=== PATIENT | female | born 1955 | race Caucasian/White ===

== ENCOUNTER 2024-03-13 20:59 | Emergency (ER) | payer MEDICARE ==
[~2024-03-13] VITALS: Ht 172.7 cm; Wt 75.4 kg
[2024-03-13 21:48] LABS: BASOPHILS # (AUTO) 0.1 X10'3 (0-0.2); HEMOGLOBIN 13.8 g/dl (12.0-16.0); LYMPHOCYTES % (AUTO) 36.7 % (21-51); MONOCYTES # (AUTO) 0.7 X10'3 (0-0.9)
[2024-03-13 21:50] LABS: BASOPHILS % (AUTO) 0.8 % (0-1); EOSINOPHILS # (AUTO) 0.1 X10'3 (0-0.9); EOSINOPHILS % (AUTO) 1.5 % (0-6); HEMATOCRIT 41.3 % (35.0-45.0); LYMPHOCYTES # (AUTO) 3.4 X10'3 (1.1-4.8); MEAN CORPUSCULAR HEMOGLOBIN 31.6 PG (27.0-31.0); MEAN CORPUSCULAR HGB CONC 33.5 g/dL (33.0-36.5); MEAN CORPUSCULAR VOLUME 94.3 FL (78-98); MEAN PLATELET VOLUME 10.3 FL (7.4-10.4); MONOCYTES % (AUTO) 7.2 % (2-12); NEUTROPHILS % (AUTO) 53.8 % (42-75); PLATELET COUNT 282 X10'3 (140-440); RED BLOOD COUNT 4.38 X10'6 (4.20-5.60); RED CELL DISTRIBUTION WIDTH 12.8 % (11.5-14.5); WHITE BLOOD COUNT 9.3 X10'3 (4.5-11.0)
[2024-03-13 22:04] LABS: ALANINE AMINOTRANSFERASE 11 U/L (12-78); ALBUMIN/GLOBULIN RATIO 1.1 (1.1-1.5); ALKALINE PHOSPHATASE 92 IU/L (46-116); ANION GAP 11 (8-16); ASPARTATE AMINO TRANSFERASE 14 U/L (10-37); BILIRUBIN,TOTAL 1.3 MG/DL (0.1-1.0); BLOOD UREA NITROGEN 16 MG/DL (7-18); CALCIUM 9.1 MG/DL (8.5-10.1); CHLORIDE 105 MMOL/L (99-107); CREATININE 0.94 MG/DL (0.40-0.90); GLUCOSE 161 MG/DL (70-104); SODIUM 144 MMOL/L (135-145); TOTAL CARBON DIOXIDE 27.8 MMOL/L (24-32); TOTAL PROTEIN 7.7 G/DL (6.4-8.2); eCRCL 59 ML/MIN; eGFR 60 ML/MIN
[2024-03-13 22:10] LABS: PRO BRAIN NATRIURETIC PEPTIDE 344 PG/ML (0-125)
[2024-03-13] MEDS: ondansetron/PF 4mg/2ml inj IV ONE (23:55)
[2024-03-13] MEDS: normal saline 1000ml 1,000 ML IV ONE (23:55)
[2024-03-13] MEDS: HYDROmorphone 1 mg/ml syringe IV ONE (23:56)
[2024-03-13] MEDS ORDERED: iohexol 300mg/ml 100ml inj. ONE (23:56)
[2024-03-13 23:59] LABS: LIPASE 50 U/L (16-77); MAGNESIUM 1.9 MG/DL (1.5-2.4)
[2024-03-14] MEDS: HYDROmorphone 1 mg/ml syringe IV ONE (01:28)
[2024-03-14] MEDS: ketorolac trometh 30MG/ML vial 30 MG/ML VIAL IV ONE (01:28)
[2024-03-14 01:43] LABS: BILIRUBIN,URINE NEGATIVE (Neg); CLARITY,URINE CLEAR (Clear); COLOR,URINE YELLOW (Yellow); GLUCOSE, URINE NEGATIVE (Neg); KETONES,URINE 15 mg/dl (Neg); LEUKOCYTE ESTERASE ,URINE NEGATIVE (Neg); NITRITES, URINE NEGATIVE (Neg); OCCULT BLOOD,URINE NEGATIVE (Neg); PH,URINE 6.5 (4.8-8.0); PROTEIN,URINE NEGATIVE (Neg); UROBILINOGEN,URINE 0.2 E.U/dL (0.2-1.0)
[2024-03-14 01:50] LABS: UA COLLECTION TYPE URINAL
[2024-03-14] MEDS: POTASSIUM BICARB 20meq eff tab 20 MEQ TABLET.EFF PO STA (02:55)
[2024-03-14] MEDS ORDERED: potassium Cl 20 mEq SR tablet PO PRN (04:10)
[2024-03-14] MEDS ORDERED: acetaminophen 325mg tablet PO PRN (04:10)
[2024-03-14] MEDS ORDERED: magnesium sulf-water 2g/50mL 50 ML IV PRN ×2 (04:10)
[2024-03-14] MEDS ORDERED: ondansetron/PF 4mg/2ml inj IV PRN (04:10)
[2024-03-14] MEDS ORDERED: magnesium Cl slow-release 64mg tablet PO PRN (04:10)
[2024-03-14] MEDS ORDERED: magnesium hydroxide 30ml (MOM) UD suspension PO PRN (04:10)
[2024-03-14] MEDS ORDERED: potassium Cl 40MEQ/1/2NS 520ml 520 ML IV PRN ×2 (04:10)
[2024-03-14] MEDS ORDERED: magnesium sulf-water 4G/100mL 100 ML IV PRN ×2 (04:10)
[2024-03-14] MEDS ORDERED: mag hydrox/Alum hydrox/simeth 30ml oral suspension PO PRN (04:10)
[2024-03-14] MEDS ORDERED: HYDROcodone/acetaminophen 10/325mg tab PO PRN (04:25)
[2024-03-14] MEDS ORDERED: HYDROcodone/acetaminophen 5mg/325mg tablet PO PRN (04:25)
[2024-03-14] MEDS: tamsulosin 0.4mg capsule PO SCH (04:59)
[2024-03-14] MEDS: normal saline 1000ml 1,000 ML IV SCH (05:00)
[2024-03-14 05:16] LABS: HEMOGLOBIN A1C 5.9 % (4.5-6.2)
[2024-03-14] MEDS: K and/or MAG REPLACEMENT MC SCH (08:00)
[2024-03-14] MEDS: potassium Cl 20 mEq SR tablet PO PRN (08:55)
[2024-03-14] MEDS: docusate sod 100mg capsule PO SCH (08:55)
[2024-03-14] MEDS: heparin, porcine 5000 units/ml vial SQ SCH (08:57)
[2024-03-14] MEDS: morphine 2 MG/ML inj. syringe IV PRN ×2 (09:04→13:06)
[2024-03-14 13:45] VITALS: TEMP 98.3
[2024-03-14 14:12] VITALS: BP 131/73; PULSE 81; RESP 15; O2SAT 97
== END 2024-03-14 15:23 | disposition admitted as inpatient to this hospital (09) ==
LOC: ER 21:00 → UNDOADMIN 03-14 04:22 → ED HOLD 03-14 04:22 → UNDODISIN 03-14 15:00
DX: E87.6 Hypokalemia (principal); N20.0 Calculus of kidney
CPT/HCPCS: 36415; 71045; 74177; 80053; 81003; 83036; 83605; 83690; 83735; 83880; 84484; 85025; 93005; 96361; 96372; 96374; 96375; 96376; 99285; J1171; J1644; J1885; J2270; J2405; J7030; Q9967; G0378